=== PATIENT | male | born 1980 | race Caucasian/White ===

== ENCOUNTER 2023-10-11 05:00 | Emergency (ER) | payer BC ==
[2023-10-11] MEDS: Sodium Chloride 0.9% 1,000 ML IV ONE (05:32)
[2023-10-11] MEDS: Ketorolac 30 MG/ML SDV IVPUSH ONE (05:33)
[2023-10-11] MEDS: Dexamethasone 4 MG/ML SDV IVPUSH ONE (05:35)
[2023-10-11] MEDS: Sodium Chloride 0.9% 10 ML Syringe FLUSH PRN (05:38)
[2023-10-11] MEDS: Sodium Chloride 0.9% 2.5 ML Syringe FLUSH PRN (05:38)
[2023-10-11 05:49] LABS: HEMATOCRIT 44.9 % (42.0-52.0); HEMOGLOBIN 15.4 g/dL (14.0-18.0); MEAN CORPUSCULAR HEMOGLOBIN 32.6 pg (28.0-32.0); MEAN CORPUSCULAR HGB CONC 34.3 g/dL (32.0-36.0); MEAN CORPUSCULAR VOLUME 94.9 fL (83.0-99.0); MEAN PLATELET VOLUME 10.2 fL (9.4-12.4); PLATELET COUNT,PLT 255 K/uL (150-400); RED BLOOD CELL COUNT 4.73 M/uL (4.52-5.90); WHITE BLOOD CELL COUNT,WBC 15.96 K/uL (3.9-11.3)
[2023-10-11 06:08] LABS: CARBON DIOXIDE,CO2 27.3 mmol/L (21.0-32.0); CREATININE 0.9 mg/dL (0.8-1.3); EST CRCL DRUG DOSING (CG) 121.78 mL/min
[2023-10-11] MEDS: Iopamidol 755 MG/ML 500 ML Multipack Bottle IVPUSH STA (06:20)
[2023-10-11 06:27] LABS: LYMPHOCYTES ABSOLUTE MAN 2.39 K/uL (1.00-4.80); LYMPHOCYTES PERCENT MAN 15 % (24-44); MONOCYTES ABSOLUTE MAN 1.92 K/uL (0.00-0.80); MONOCYTES PERCENT MAN 12 % (0-8); SEG NEUTROPHILS ABSOLUTE MAN 11.65 K/uL (1.80-7.70); SEG NEUTROPHILS PERCENT MAN 73 % (41-71)
[2023-10-11] MEDS: Ampicillin/Sulbactam Na 3 GM in Sodium Chloride 0.9% 100 ML IV ONE (06:59)
== END 2023-10-11 07:38 | disposition left against medical advice (07) ==
LOC: MW.ED 05:00
DX: J36 Peritonsillar abscess (principal); F17.210 Nicotine dependence, cigarettes, uncomplicated; Z79.899 Other long term (current) drug therapy
CPT/HCPCS: 36415; 70491; 80048; 85025; 86308; 87651; 96361; 96365; 96375; 99284; J0295; J1100; J1885; J3490; J7030; Q9967